=== PATIENT | male | born 1965 | race Caucasian/White ===

== ENCOUNTER 2019-04-25 16:43 | Emergency (ER) | payer OTHER ==
--- OUTSIDE RECORDS SUMMARY | 2019-04-25 16:53 | XMS REPORT | Summary of Care ---
:1965 Author Organization [facility] Address [address] [address] Care Team Providers Name Role Phone Anu Newton MD Primary Care Provider Reason for Visit Reason Comments Check Up physical Encounter Details Date Type Department Care Team Description 04/03/2019 Office Visit [facility] Luc Newton adult exam (Primary Dx); Practice Anu Paiz MD Mixed hyperlipidemia; [address] Essential [place] [address] [place] [address] [phone] Allergies Active Allergy Reactions Severity Noted Date Comments Lisinopril Other Low 09/07/2017 cough documented as of this encounter (statuses as of 04/03/2019) Medications Medication Sig Dispensed Refills Start End Date Status Date atorvastatin Take 1 Tab by 90 Tab 0 Active (LIPITOR) 40 MG mouth DAILY. 9 Oral Discontinue TabIndications: fenofibrate Mixed hyperlipidemia losartan (COZAAR) Take 1 Tab by 90 Tab 0 Active 50 MG Oral mouth DAILY. 9 TabIndications: Essential hypertension, benign atorvastatin Take 1 Tab by 90 Tab 0 04/03/20 Discontinued (LIPITOR) 40 MG mouth DAILY. 9 19 (Reorder) Oral Discontinue TabIndications: fenofibrate Mixed hyperlipidemia losartan (COZAAR) Take 1 Tab by 90 Tab 0 04/03/20 Discontinued 25 MG Oral mouth DAILY. 9 19 (Reorder) TabIndications: Essential hypertension, benign documented as of this encounter (statuses as of 04/03/2019) Active Problems Problem Noted Date Essential hypertension, benign 08/11/2017 Mixed hyperlipidemia 08/11/2017 Photoaging of skin 06/03/2009 Hematuria, Unspecified 09/27/2003 documented as of this encounter (statuses as of 04/03/2019) Resolved Problems Problem Noted Date Resolved Date Left shoulder pain 01/03/2014 08/11/2017 Rotator cuff tear 01/03/2014 08/11/2017 Encounter for allergy testing 08/11/2017 Overview: 8.28.2007 Replaced inactive diagnosis LIP SWELLING 08/11/2017 Cancer 08/11/2017 documented as of this encounter (statuses as of 04/03/2019) Immunizations Name Administration Dates Next Due TDAP Vaccine 04/29/2016 documented as of this encounter Social History Tobacco Use Types Packs/Day Years Used Date Never Smoker Smokeless Tobacco: Never Used Alcohol Use Drinks/Week oz/Week Comments Yes 1 Standard drinks or equivalent 1.0 Sex Assigned at Date Recorded Not on file Job Start Date Occupation Industry Not on file Not on file Not on file Travel History Travel Start Travel End No recent travel history available. documented as of this encounter Last Filed Vital Signs Vital Sign Reading Time Taken Comments Blood Pressure 150/90 04/03/2019 3:38 PM EST Pulse 56 04/03/2019 3:16 PM EST Temperature - - Respiratory Rate - - Oxygen Saturation 97% 04/03/2019 3:16 PM EST Inhaled Oxygen Concentration - - Weight 97.5 kg (215 lb) 04/03/2019 3:16 PM EST Height 177.8 cm (5' 10") 04/03/2019 3:16 PM EST Body Mass Index 30.85 04/03/2019 3:16 PM EST documented in this encounter Patient Instructions Patient InstructionsAnu Newton MD - 04/03/2019 3:20 PM LYLA did your physical exam today. Please do laboratory tests today (non-fasting) and I will send results. Your blood pressure was elevated upon arrival today. We rechecked it at the end of the visit it remained high. Please increase losartan to 50 mg daily and follow up with me in one krystal. Follow a low salt, low caffeine diet. DIET AND EXERCISE: Exercise is recommended 150 minutes weekly: 30 minutes five days a week of moderate exercise such as walking. In addition is it recommended you have two days weekly of working all your major muscle groups (arms, legs) such as with weight lifting or other exercise. documented in this encounter Progress Notes Anu Newton MD - 04/03/2019 3:20 PM EST Chief Complaint Patient presents with Check Up physical Subjective: Ronni Salmon is a 54-y.o. year old male who presents for annual physical exam. Last seen 03/2018 Laboratory tests are due Patient Active Problem List Diagnosis Hematuria, Unspecified Photoaging of skin Essential hypertension, benign Mixed hyperlipidemia Acute new problems include: None Health maintainance concerns include: Health Maintenance Topic Date Due DIABETES SCREENING 09/21/2018 DEPRESSION SCREENING 04/03/2020 LIPID DISORDER SCREENING 04/03/2020 DTaP/Tdap/Td Vaccines (2 - Tdap) 04/29/2026 Colonoscopy 07/08/2026 HEPATITIS A IMMUNIZATION SERIES Aged Out HPV IMMUNIZATION SERIES Aged Out MENINGOCOCCAL VACCINE IMM Aged Out PNEUMOCOCCAL 0-64 YRS Aged Out Immunization History Administered Date(s) Administered TDAP Vaccine 04/29/2016 Lab on 09/21/2017 Component Date Value Ref Range Status Glucose 09/21/2017 89 70 - 99 mg/dL Final BUN 09/21/2017 18 9 - 20 mg/dL Final Creatinine 09/21/2017 1.0 0.8 - 1.5 mg/dL Final Sodium 09/21/2017 141 134 - 145 mmol/L Final Potassium 09/21/2017 4.6 3.5 - 5.1 mmol/L Final Chloride 09/21/2017 101 98 - 107 mmol/L Final CO2 09/21/2017 27 22 - 30 mmol/L Final Calcium 09/21/2017 9.7 8.3 - 10.1 mg/dL Final eGFR 09/21/2017 >60 See Interpretation Below ml/min/1.73ml Sq Final Estimated GFR Interpretation: Above 60ml/min/1.73m2 = Normal Renal Function 30-59 ml/min/1.73m2 = Stage 3 Chronic Kidney Disease 15-29 ml/min/1.73m2 = Stage 4 Chronic Kidney Disease Less than 15 ml/min/1.73m2 = Stage 5 Chronic Kidney Disease The GFR value is calculated using the Modification of Diet in Renal Disease ( MDRD) Study Equation which can be found at: https://www.kidney.org/content/nuxh-dskgo-xearrwfg BUN/Creatinine Ratio 09/21/2017 18 6 - 22 Final Anion Gap 09/21/2017 13* 3 - 11 mmol/L Final Health Maintenance Topic Date Due DIABETES SCREENING 09/21/2018 DEPRESSION SCREENING 04/03/2020 LIPID DISORDER SCREENING 04/03/2020 DTaP/Tdap/Td Vaccines (2 - Tdap) 04/29/2026 Colonoscopy 07/08/2026 HEPATITIS A IMMUNIZATION SERIES Aged Out HPV IMMUNIZATION SERIES Aged Out MENINGOCOCCAL VACCINE IMM Aged Out PNEUMOCOCCAL 0-64 YRS Aged Out Past Medical History: Diagnosis Date Actinic keratosis followed by dermatology Chronic kidney disease Essential (primary) hypertension Hypertriglyceridemia Current Outpatient Medications Medication Sig atorvastatin (LIPITOR) 40 MG Oral Tab Take 1 Tab by mouth DAILY. Discontinue fenofibrate losartan (COZAAR) 50 MG Oral Tab Take 1 Tab by mouth DAILY. No current facility-administered medications for this visit. Lisinopril Social History Tobacco Use Smoking status: Never Smoker Smokeless tobacco: Never Used Substance Use Topics Alcohol use: Yes Alcohol/week: 1.0 standard drinks Types: 1 Standard drinks or equivalent per week Drug use: No Family History Problem Relation Age of Onset Heart Mother 60 [place] Cancer Father skin No Known Problems Sister No Known Problems Brother No Known Problems Child No Known Problems Child Allergies Other blood relative Cancer Other blood relative Cancer Maternal Grandmother lung Diabetes No family history Review of Systems - General ROS: negative for - chills or fever, unexpected weight changes ENT ROS: negative for - headaches, nasal congestion, nasal discharge, sinus pain , sore throat or visual changes Respiratory ROS: negative for - cough, hemoptysis or shortness of breath Cardiovascular ROS: negative for - chest pain, dyspnea on exertion, edema or palpitations Gastrointestinal ROS: no abdominal pain, change in bowel habits, or black or bloody stools Genito-Urinary ROS: no dysuria, trouble voiding, or hematuria Neuro: denies headache, focal weakness, numbness Psych: Denies depression Objective: BP 150/90 Pulse 56 Ht 5' 10" (1.778 m) Wt 215 lb (97.5 kg) SpO2 97% BMI 30.85 kg/m2 Physical Examination: General appearance - alert, well appearing, and in no distress Mental status - alert, oriented to person, place, and time, normal mood, behavior, speech, dress, motor activity, and thought processes Eyes - pupils equal and reactive, extraocular eye movements intact, sclera anicteric Ears - bilateral TM's and external ear canals normal Neck - supple, no cervical or supraclavicular adenopathy, carotids upstroke normal bilaterally, no bruits, thyroid exam: thyroid is normal in size without nodules or tenderness, no neck masses palpated. Chest/Lungs - clear to auscultation, no wheezes, rales or rhonchi, symmetric air entry, good aeration Heart - normal rate, regular rhythm, normal S1, S2, no murmurs, rubs, clicks or gallops Abdomen - soft, non tender on palpation, nondistended, no masses or hepatosplenomegaly, bowel soundsnormal, normal to percussion, no guarding or rebound. No costervertebral angle tenderness Neurological - alert, oriented, normal speech, no gross focal findings or movement disorder noted Extremities - dorsalis pedis pulses normal, no pedal edema, no clubbing or cyanosis Assessment/Plan: 1. Well adult exam 2. Mixed hyperlipidemia 3. Essential hypertension, benign 1. Routine Screening: Cholesterol: yes Screen for Type 2 DM w/fasting plasma glucose: yes Colon Ca screening with Hemoccults x 3: not applicable Colon Ca screening with colonoscopy: Normal 2016, 10 year follow up PSA: no 2. Immunizations given today: Declines influenza vaccine 3. Preventative Counseling: moderation of EtOH, healthy dietary guidelines, proper exercise 4. BP remains high: Will increase losartan and have him follow up next month. DIET AND EXERCISE: Exercise is recommended 150 minutes weekly: 30 minutes five days a week of moderate exercise such as walking. In addition is it recommended you have two days weekly of working all your major muscle groups (arms, legs) such as with weight lifting or other exercise. Patient Instructions I did your physical exam today. Please do laboratory tests today (non-fasting) and I will send results. Your blood pressure was elevated upon arrival today. We rechecked it at the end of the visit it remained high. Please increase losartan to 50 mg daily and follow up with me in one krystal. Follow a low salt, low caffeine diet. DIET AND EXERCISE: Exercise is recommended 150 minutes weekly: 30 minutes five days a week of moderate exercise such as walking. In addition is it recommended you have two days weekly of working all your major muscle groups (arms, legs) such as with weight lifting or other exercise. Anu Newton MD documented in this encounter Plan of Treatment Date Type Specialty Care Team Description 05/08/2019 Office Visit Family Practice Anu Newton MD [address] [id number] [phone] Name Type Priority Associated Diagnoses Order Schedule COMPREHENSIVE METABOLIC Lab Routine Mixed hyperlipidemia Expected: 04/03/2019 PANEL Essential hypertension, (Approximate), benign Expires: 04/03/2020 LIPID PROFILE Lab Routine Mixed hyperlipidemia Expected: 04/03/2019 (Approximate), Expires: 04/03/2020 Health Maintenance Due Date Last Done Comments DIABETES SCREENING 09/21/2018 09/21/2017, 08/13/2017, 06/10/2016, Additional history exists DEPRESSION SCREENING 04/03/2020 04/03/2019 LIPID DISORDER SCREENING 04/03/2020 04/03/2019, 08/13/2017, 06/10/2016, Additional history exists DTaP/Tdap/Td Vaccines (2 - 04/29/2026 04/29/2016 Tdap) Colonoscopy 07/08/2026 07/08/2016 HEPATITIS A IMMUNIZATION Aged Out No longer eligible SERIES based on patient's age to complete this topic HPV IMMUNIZATION SERIES Aged Out No longer eligible based on patient's age to complete this topic MENINGOCOCCAL VACCINE IMM Aged Out No longer eligible based on patient's age to complete this topic PNEUMOCOCCAL 0-64 YRS Aged Out No longer eligible based on patient's age to complete this topic documented as of this encounter Goals Goal Patient Goal Associated Recent Patient-Stated? Author Type Problems Progress Blood Pressure Blood 150/90 No Aman, < 140/90 Pressure (04/03/2019 Anu Paiz, 3:38 PM EST) Note: This is an individualized treatment (blood pressure) goal for Ronni Salmon: Displayed above (on the left) is your goal for blood pressure control. Your most recent blood pressure is also shown above, on the right. You should try to achieve blood pressures that are lower than your goal listed above (on the left). Weight loss vs. 18 Lifestyle 0 (04/03/2019 3:16 PM No Anu Newton mo max (lbs) >= 10 EST) Note: This is an individualized lifestyle goal for Ronni Salmon: Your body mass index (BMI) is more than 30. You should lose weight. A reasonable starting goal is to lose 10 pounds. Displayed above is how many pounds you have lost thus far towards your 10 pound weight loss goal. Take all prescribed medications as Self-management No Anu Newton MD directed Note: This is an individualized self-management goal for Ronni Salmon: Please take all prescribed medications as directed. 1. Do not skip doses. If you cannot afford your medications, talk with your doctor. 2. Use a pill reminder system such as a pill box if needed. Your pharmacist can help you with this. 3. Contact your Pharmacy 5 days before your medication runs out. If you cannot take your medications for any reasons, talk with your doctor. 4. Please bring all of your medication bottles and inhalers (or a list of all your medications/inhalers) with you to every visit. Potential barriers to meeting all of your care plan goals will continue to be addressed on an ongoing basis. documented as of this encounter Implants Implanted Type Area Laboratory Clerk Device Shelf Model / Identifier Expiration Serial / Date Lot Triple Loaded Redgranite - [id number] Left: BIOMET 04/03/2019 [id number] / Implanted: Qty: 1 on 05/04/2014 by David Dobbs MD at [facility] Shoulder / [id number] [place] 3.5mm - [id number] Left: ARTHREX 01/02/2019 [id number] / Implanted: Qty: 2 on 05/04/2014 by David Dobbs MD at [facility] [place] / [id number] documented as of this encounter Results Not on filedocumented in this encounter Visit Diagnoses Diagnosis Mixed hyperlipidemia Essential hypertension, benign Well adult exam Routine general medical examination at a health care facility documented in this encounter Insurance Payer Benefit Plan / Subscriber ID Effective Dates Phone Address Type Group LIFETIME LIFETIME BENEFIT xxxxxxxxxxxx [email or web address]-[email or web address] Guarantor Name Account Type Relation to Date of Phone Billing Patient Address Randy Salmon Personal/Family 1965 [id number] [phone] [place], [place] ([place]) [id number] documented as of this encounter
[2019-04-25 17:02] VITALS: BP 149/82
--- NOTE | 2019-04-25 18:40 | UC ---
General HPI - HPI Summary HPI Summary: Pleasant 54 yo gentleman c/o rash on arms increasing over the last several days. Reports that he gets this every year, and steroid cream helps. Has appt with Button Tu[employer]ing Machine Operator, in July. No fever / chills. Has been using topical benadry cream, which helps but only for a short while. O/w healthy, no recent illness. - History of Current Complaint Chief Complaint: UCSkin Stated Complaint: RASH Time Seen by Provider: 04/25/19 18:39 Hx Obtained From: Patient Pain Intensity: 0 - Allergy/Home Medications Allergies/Adverse Reactions: Allergies Allergy/AdvReac Type Severity Reaction Status Date / Time No Known Allergies Allergy Verified 04/25/19 17:03 Home Medications: Home Medications Atorvastatin* [Lipitor*] 10 mg PO 1700 04/25/19 [History Confirmed 04/25/19] Losartan TAB* [Cozaar TAB*] 50 mg PO DAILY 04/25/19 [History Confirmed 04/25/19] PMH/Surg Hx/FS Hx/Imm Hx Previously Healthy: Yes - see hpi - Surgical History Surgical History: Yes Surgery Procedure, Year, and Place: R great toe. Rotor cuff surgery 2014 - Family History Known Family History: Positive: None - Social History Alcohol Use: Weekly Substance Use Type: None Smoking Status (MU): Never Smoked Tobacco - Immunization History Most Recent Tetanus Shot: unknown Review of Systems All Other Systems Reviewed And Are Negative: Yes Constitutional: Positive: Negative Skin: Positive: Other - see hpi Eyes: Positive: Negative ENT: Positive: Negative Respiratory: Positive: Negative Cardiovascular: Positive: Negative Gastrointestinal: Positive: Negative Genitourinary: Positive: Negative Motor: Positive: Negative Neurovascular: Positive: Negative Musculoskeletal: Positive: Negative Neurological: Positive: Negative Psychological: Positive: Negative Is Patient Immunocompromised?: No Physical Exam Triage Information Reviewed: Yes Appearance: Well-Appearing, Well-Nourished Vital Signs: Initial Vital Signs Temp 98.4 F 04/25/19 16:58 Pulse 56 04/25/19 16:58 Resp 16 04/25/19 16:58 BP 149/82 04/25/19 16:58 Pulse Ox 100 04/25/19 16:58 Vital Signs Reviewed: Yes Eye Exam: Normal - grossly normal ENT Exam: Normal - grossly normal Neck exam: Normal - no c/o Respiratory Exam: Normal - rr normal, no dyspnea Cardiovascular Exam: Normal - hr normal, nondiaphoretic Abdominal Exam: Normal Abdomen Description: Positive: Nontender Musculoskeletal Exam: Normal - see skin re rash, o/w nad Neurological Exam: Normal - grossly nonfocal Psychological Exam: Normal - nad Skin Exam: Other - nondiaphoretic Elbows, forearms, lat arms + redness, dermatitis. Possibly psoriatic dermatitic patternn directly over elbows. Does not appear infected. Course/Dx - Course Course Of Treatment: Reviewed coa / tx plan. Questions as posed answered to the best of my ability. Addendum - I called pt's pharmacy, triamcinolone cream noted as NF on "amb orders". However, per pharmacy, it is covered by his insurance. - Diagnoses Provider Diagnosis: Dermatitis Discharge ED - Sign-Out/Discharge Documenting (check all that apply): Patient Departure All imaging exams completed and their final reports reviewed: No Studies - Discharge Plan Condition: Stable Disposition: HOME Prescriptions: predniSONE 10 mg TAB [Deltasone 10 MG TAB*] 10 mg PO DAILY #14 tab Triamcinolone 0.1% CREAM(NF) [Kenalog Cream 0.1%(NF)] 1 applic TOPICAL TID PRN # 1 tube PRN Reason: Rash Patient Education Materials: Dermatitis (ED) Referrals: Anu Newton MD [Primary Care Provider] - Additional Instructions: Follow up with your block piler as scheduled. Seek medical attention for worse or new problems. Follow up with your primary care physician, per routine. Double rinse laundry. Use hypoallergenic laundry soap. Hydrate. Yogurt and / or probiotic daily, especially while taking prednisone. - Billing Disposition and Condition Condition: STABLE Disposition: Home
== END 2019-04-25 19:04 | disposition home or self-care (01) ==
LOC: UCCORT 16:43
DX: L30.9 Dermatitis, unspecified (principal)
CPT/HCPCS: 99202; G0463